=== PATIENT | female | born 2000 | race Caucasian/White ===

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

== ENCOUNTER 2018-07-01 14:09 | Emergency (ER) | payer OTHER ==
[2018-07-01] MEDS ORDERED: diphenhydrAMINE 50 MG/ML VIAL IVP ONE (14:15)
[2018-07-01] MEDS ORDERED: methylPREDNIS SUCC 125 MG/2ML IVP ONE (14:15)
[2018-07-01] MEDS ORDERED: FAMOTIDINE(*) 20MG/50ML PREMIX 50 ML IVPB ONE (14:15)
[2018-07-01] MEDS ORDERED: NS(*) 0.9% 1000 ML BAG 1,000 ML IV ONE (14:15)
--- NOTE | 2018-07-01 14:19 | ER Report ---
History and Physical Time Seen By MD: 14:12 HPI/ROS CHIEF COMPLAINT: Allergic reaction HISTORY OF PRESENT ILLNESS: This is a 18-year-old female presents to the emergency department for an allergic reaction. Patient states that about 20 minutes prior to arrival, she was eating and oriented, then suddenly developed some irritation, scratchiness to her throat and she felt as though it was beginning to swell. Patient arrives alert and oriented, in no respiratory distress. She has no history of allergic reactions prior to today. No other new ingested items today. No rashes, no fevers or chills. No audible wheezing. No drooling. REVIEW OF SYSTEMS: Constitutional: No fever, no chills. Eyes: No discharge. ENT: As above. Cardiovascular: No chest pain, no palpitations. Respiratory: No cough, no shortness of breath. Gastrointestinal: No abdominal pain, no vomiting. Genitourinary: No hematuria. Musculoskeletal: No back pain. Skin: No rashes. Neurological: No headache. Allergies: Coded Allergies: No Known Drug Allergies (Unverified , 07/21/17) Home Meds No Active Prescriptions or Reported Meds Past Medical/Surgical History The patient has a past medical and surgical history of tonsillectomy, wears glasses. Reviewed Nurses Notes: Yes Hx Smoking: No Hx Substance Use Disorder: No Hx Alcohol Use: No Constitutional Vital Sign - Last 24 Hours 07/01/18 07/01/18 07/01/18 07/01/18 14:09 14:13 14:14 14:24 Temp 98.6 Pulse ??? 132 114 Resp 18 B/P (MAP) 131/83 (99) 131/82 Pulse Ox 97 96 O2 Delivery Room Air 07/01/18 07/01/18 07/01/18 07/01/18 14:31 14:39 14:54 15:00 Pulse 99 107 B/P (MAP) 109/72 (84) 88/51 (63) Pulse Ox 92 96 07/01/18 07/01/18 07/01/18 07/01/18 15:01 15:01 15:09 15:24 Pulse 102 112 98 Resp 18 Pulse Ox 97 92 93 O2 Delivery Room Air 07/01/18 07/01/18 15:30 15:39 Pulse 92 B/P (MAP) 91/59 (70) Pulse Ox 95 Physical Exam General Appearance: The patient is alert, has no immediate need for airway protection and no signs of toxicity. Eyes: Pupils equal and round no pallor or injection. ENT, Mouth: Mucous membranes are moist. Erythema to the posterior oropharynx, uvula is midline, there does appear to be mild edema however nonobstructive. Respiratory: There are no retractions, lungs are clear to auscultation. Cardiovascular: Regular rate and rhythm. Gastrointestinal: Abdomen is soft and non tender, no masses, bowel sounds normal. Neurological: Alert and oriented 4. Moving all extremities. Following all commands. No focal neuro deficits. Skin: Warm and dry, no rashes. Musculoskeletal: Neck is supple non tender. Extremities are nontender, nonswollen and have full range of motion. DIFFERENTIAL DIAGNOSIS: After history and physical exam differential diagnosis was considered for allergic reaction. Medical Decision Making ED Course/Re-evaluation Clinical Indication for ER IV: Hydration, IV Access ED Course The patient was admitted to room. A history and physical were obtained. Differential diagnoses were considered. IV was started. A 1 L normal saline bolus was given. 125 mg IV site Medrol, 25 mg IV Benadryl, 20 mg IV famotidine and 1 DuoNeb were given. Patient had significant relief of her symptoms. Patient was encouraged to follow-up with Dr. Waddell for allergy testing. She was also instructed to follow-up with [facility] [facility] this week for reevaluation. Return to the ER for any concerns or worsening symptoms, patient expressed understanding was discharged home. Decision to Disposition Date: Jul 01, 2018 Decision to Disposition Time: 15:41 Depart Departure Latest Vital Signs Vital Signs Date Time Temp Pulse Resp B/P (MAP) Pulse Ox O2 Delivery O2 Flow Rate FiO2 07/01/18 15:39 92 95 07/01/18 15:30 91/59 (70) 07/01/18 15:01 Room Air 07/01/18 15:01 18 07/01/18 14:14 98.6 Impression: Primary Impression: Allergic reaction Condition: Improved Disposition: HOME OR SELF-CARE Referrals: KEKE WADDELL JR, MD STUDENT [facility] New Scripts No Active Prescriptions or Reported Meds Patient Instructions: General Allergic Reaction (ED) Additional Instructions: Please follow up with Dr. Waddell for allergy testing. Follow up with [facility] [facility] within one week for reevaluation. Get plenty of rest. Drink plenty of fluids. You can take 25-50mg of Benadryl every 4-6 hours as needed for allergic reaction, If you use Benadryl, please follow up for reevaluation. Return to the ED for any other concerns or worsening symptoms. Avoid [place]. Problem Qualifiers Primary Impression: Allergic reaction Encounter type: initial encounter Qualified Codes: T78.40XA - Allergy, unspecified, initial encounter BETTY BEJARANO Jul 01, 2018 14:19
[2018-07-01] MEDS ORDERED: ALBUTEROL/IPRATROPIUM 3 ML NEB NEB ONE (14:50)
[2018-07-01 15:30] VITALS: BP 91/59
== END 2018-07-01 15:40 | disposition home or self-care (01) ==
LOC: ER 14:19
DX: T78.40XA Allergy, unspecified, initial encounter (principal)
CPT/HCPCS: 94640; 96361; 96365; 96375; 99284; J1200; J2930; J3490; J7030; J7620

== ENCOUNTER → 2018-08-01 | Outpatient (CLI) | payer OTHER ==
[~2018-08-01] MED LIST: EPIN0.3P15 IM
== END ==
LOC: LAB 10:01
PROVIDERS: ATTEND Otolaryngology
DX: Z91.018 Allergy to other foods (principal); T78.2XXA Anaphylactic shock, unspecified, initial encounter
CPT/HCPCS: 36415